=== PATIENT | female | born 1935 | race African-American/Black ===

== ENCOUNTER → 2021-04-18 14:14 | Outpatient (REF) | payer MEDICARE, BC, SELFPAY | LOC: ANHLAB 14:14 | PROVIDERS: PCP Family Medicine; Visit Provider Nurse Practitioner | DX: L98.9 Disorder of the skin and subcutaneous tissue, unspecified (principal) | CPT/HCPCS: 88304 ==

== ENCOUNTER 2021-08-18 09:03 | Outpatient (CLI) | payer MEDICARE, BC, SELFPAY ==
--- NOTE | 2021-08-18 13:53 | ECG_ITS ---
Measurements Intervals [place] Rate: 76 P: 40 SD: 186 QRS: -16 QRSD: 97 T: -11 QT: 368 QTc: 416 Interpretive Statements SINUS RHYTHM MINIMAL VOLTAGE CRITERIA FOR LVH, CONSIDER NORMAL VARIANT [MEETS CRITERIA IN ONE OF: R(aVL), S(V1), R(V5), R(V5/V6)+S(V1)] NONSPECIFIC T-WAVE ABNORMALITY POOR R-WAVE PROGRESSION ABNORMAL ECG NO PREVIOUS ECG AVAILABLE FOR COMPARISON Electronically Signed On 08-18-2021 17:03:42 CDT by Bert Vadles M.D.
[2021-08-18 14:42] LABS: Anion Gap 9 mmol/L (8-16); Blood Urea Nitrogen 26 mg/dL (7-17); Calcium 8.7 mg/dL (8.4-10.2); Carbon Dioxide 31 mmol/L (22-30); Chloride 101 mmol/L (98-107); Estimated Glomerular Filt Rate > 60; Glucose 130 mg/dL (65-110); Potassium 3.7 mmol/L (3.4-5.0); Sodium 141 mmol/L (137-145)
== END 2021-08-18 09:04 | disposition home or self-care (01) ==
PROVIDERS: Anesthesiology; PCP Family Medicine; Visit Provider Surgery Plastic and Reconstructive Surgery
DX: Z01.818 Encounter for other preprocedural examination (principal); I10 Essential (primary) hypertension; Z79.899 Other long term (current) drug therapy; R94.31 Abnormal electrocardiogram [ECG] [EKG]
CPT/HCPCS: 36415; 80048; 93005

== ENCOUNTER 2021-08-23 00:22 | Day surgery (SDC) | payer MEDICARE, BC, SELFPAY ==
[2021-08-12 13:17] VITALS: BMI 37.0
--- NOTE | 2021-08-12 13:29 | PC.NURSE ---
Report to the Outpatient Waiting Room, entrance under the green pavilion located off [facility], at time _0700_ on date _08/23/21_. OR Time: __0900__. - You and your visitor will be asked a series of questions to screen for COVID 19 for your protection. - A mask is required within the hospital. One visitor will be allowed to accompany the patient into the hospital. Patients visitor will be instructed to remain with patient at all times or leave the building. We will allow the visitor to come back to the postoperative area when patient is ready. Preoperative COVID Testing Requirements: NONE Patients may have clear liquids (water, carbonated beverages, clear teas, apple juice) until 3 hours prior to surgery (0600 AM) with a maximum of 20 ounces. - No food from midnight until time of surgery Take the following medications with a SIP of water the morning of surgery: _METOPROLOL, INHALER_ Medications to discontinue - _ASPIRIN PER DR. MCKEON'S INSTRUCTIONS__ Medications to discontinue - MULTIVITAMIN 3 DAYS PRIOR TO SURGERY PER ANESTHESIA, Date to take last dose_08/19/21__ Please no make-up, nail yoruba, hairspray, perfume, deodorant, or body powder the day of surgery. No jewelry (including any body piercings) or valuables the day of surgery, leave them at home. Please take a shower or bath the night before, or the morning of, surgery with an antibacterial soap. Wear comfortable, loose fitting clothing. - Jewelry must be removed prior to entering the operating room. Rings and piercings that are not removed may be cut off. - The hospital will not accept responsibility for valuables. - Please leave all valuables, including medications, at home the day of surgery. If you are going home after surgery, a licensed haul truck driver must drive you home. - NO public transportation without another adult. - We recommend that an adult stay with you for 24 hours following discharge. - We also recommend that you do not drive, make important decision, drink alcoholic beverages, or take any drugs that were not prescribed by your health care provider for at least 24 hours after your discharge time. Follow any additional instructions given to you from your surgeon. Telephone instructions given to ____PT and asked if any additional questions and then verbalized understanding. Patient advised to call surgeon office or pre surgery nurse liaison [phone] if any additional questions.
[2021-08-23 07:15] VITALS: BP 147/62; PULSE 75; RESP 16; TEMP 36.9; O2SAT 100
[2021-08-23] MEDS: LACTATED RINGERS 1,000 ML 30 ML IV CONT (07:35)
--- NOTE | 2021-08-23 08:11 | WPDANESEPPF ---
Anes - Initial Pre Proc Eval Procedure: Operation Date: 08/23/21 09:00 Proposed Procedures p Excision Subcutaneous Mass Right Lower Eyelid - Dash Gong MD Date/Time: 08/23/21 08:11 Surgeon: Dash Gong MD Pre Op Diagnosis: sub q mass right lower eyelid Patient Data Age: 86 Gender: F Height: 1.57 m Weight: 91.55 kg Last Vital Signs Temp 36.9 C 08/23/21 07:15 Pulse 75 08/23/21 07:15 Resp 16 08/23/21 07:15 BP 147/62 H 08/23/21 07:15 Pulse Ox 100 08/23/21 07:15 Allergies Allergy/AdvReac Type Severity Reaction Status Date / Time No Known Allergies Allergy Verified 08/23/21 07:58 Home Medications Medication Instructions Recorded Confirmed Type albuterol sulfate 90 mcg/actuation 2 puff INHALATION Q4H PRN g 02/08/21 08/23/21 History aerosol inhaler allopurinol 100 mg tablet 100 mg PO QAM tablet 02/08/21 08/12/21 History atorvastatin 20 mg tablet 20 mg PO HS 02/08/21 08/12/21 History celecoxib 100 mg capsule 100 mg PO HS cap 02/08/21 08/12/21 History desoximetasone 0.25 % topical cream 1 applic TOPICAL BID PRN 02/08/21 08/12/21 History etanercept [Enbrel] 50 mg SUBCUT WEEKLY 02/08/21 08/12/21 History fluticasone 250 mcg-salmeterol 50 1 inh INHALATION BID 02/08/21 08/12/21 History mcg/dose blistr powdr for inhalation hydrochlorothiazide 25 mg tablet 25 mg PO QAM 02/08/21 08/12/21 History metoprolol tartrate 50 mg PO QAM 02/08/21 08/23/21 History multivitamin 1 tablet PO QAM 02/08/21 08/23/21 History tramadol 50 mg tablet 50 mg PO Q6H PRN 02/08/21 08/12/21 History Lactobacillus acidoph-L. bifid 1 cap PO QAM 08/12/21 08/23/21 History aspirin 81 mg PO QAM 08/12/21 08/12/21 History ciprofloxacin HCl 250 mg PO Q12H 08/12/21 08/12/21 History Patient hx anesthesia problems: none Family hx anesthesia problems: none Results Review: All pre-operative results and documents have been reviewed as part of the pre-operative evaluation. [facility] Past Medical History Medical History (Updated 08/22/21 @ 14:52 by Kareem Barraza DO) Asthma GERD (gastroesophageal reflux disease) History of breast cancer Hyperlipidemia Hypertension ERNST (obstructive sleep apnea) CPAP Osteoarthritis Pulmonary embolism Surgical History Surgical History (Updated 08/22/21 @ 14:52 by Kareem Barraza DO) History of hysterectomy History of mastectomy Social History Social History Smoking status: Never smoker Second hand tobacco smoke exposure: No Alcohol intake: never Substance use: never Substance use type: does not use Living arrangements: with family Additional living arrangements comments: [facility] WITH PT Spiritual care concerns: No Anes - Eval Final PreProcedure Day of Procedure 08/23/21 08:11 Patient weight: obese Heart: regular rate and rhythm Lungs: clear to auscultation and normal air movement Airway: Mallampati scale class II Neurological: alert and oriented Last oral intake: >/= 8 hours ASA classification: III Emergent: no Anesthetic plan: proceed Anesthesia type and monitoring: general LMA and standard monitoring Results Review: All pre-operative results and documents have been reviewed as part of the pre-operative evaluation. Informed Consent: The patient's anesthetic plan and its attendant risks and benefits were discussed with the patient/family/POA. Questions were solicited and answers provided to the satisfaction of the patient/family/POA.
--- NOTE | 2021-08-23 08:20 | WPDHPUPDATE1 ---
History and Physical Update Update Date/Time: 08/23/21 08:20 History and Physical has been reviewed, including an updated exam of the patient. There are NO changes in the patient's condition. Risks, benefits, and alternatives have been discussed and questions answered. Patient agrees to proceed with procedure.
--- NOTE | 2021-08-23 08:24 | W.PM.PROC2 ---
Procedure Note - Detailed Date of Procedure 08/23/21 Pre-op Diagnosis sub q mass right lower eyelid Post-op Diagnosis Same Procedure Performed Excision right lower eyelid cyst 0.5 cm Surgeon Dash Gong MD Anesthesia MAC Description of Procedure Preoperatively the risks, benefits, alternatives were discussed with her and her family in great detail. I want them to be very realistic about the risks involved as well as expectations. I was very up front honest the risk of recurrence. I had extensive conversation regarding risk of visual changes, dry eyes, epiphora, risk of injury to the lacrimal duct and other adjacent structures. This was a lengthy open-ended conversation making sure they were well informed. All questions were answered to their satisfaction today. Consent obtained. Patient was marked in the preoperative holding area with their verification. She was taken to the operating room placed supine on the operating room table. Anesthesia provided by anesthesiology and prepped and draped in a standard sterile fashion. Surgical time-out was taken. 1% lidocaine with epinephrine was used anesthetize locally. A 15 blade used to excise the cyst. This was down to the tarsal plate. Closed with 6 0 nylon. No evidence of lacrimal duct injury. Completely excised. She has taken to the PACU without difficulty. All instrument sponge counts were correct at the end of the case. Estimated Blood Loss 5 Drains No Packing No Pathology Yes (right lower lid cyst) Complications No immediate complications Condition Stable Disposition PACU
[2021-08-23] MEDS: ceFAZolin 2 GM/D5W 50 ML 2 GM/50 ML BAG IVPB (08:43)
[2021-08-23] MEDS: LIDO 1%/EPINEPHRINE 1:100,000 50 ML VIAL 20 ML INFILTRATE (09:10)
[2021-08-23 09:18] VITALS: BP 124/61; PULSE 77; RESP 12; O2SAT 98
[2021-08-23 09:45] VITALS: BP 138/66; PULSE 70
[2021-08-23 10:00] VITALS: BP 143/71; PULSE 67
== END 2021-08-23 10:17 | disposition home or self-care (01) ==
PROVIDERS: PCP Family Medicine; Visit Provider Surgery Plastic and Reconstructive Surgery
PROC: (CPT 11441; principal; 2021-08-23 09:00)
DX: D23.112 Other benign neoplasm of skin of right lower eyelid, including canthus (principal); I10 Essential (primary) hypertension; E78.5 Hyperlipidemia, unspecified; J45.909 Unspecified asthma, uncomplicated; K21.9 Gastro-esophageal reflux disease without esophagitis; G47.33 Obstructive sleep apnea (adult) (pediatric); Z85.3 Personal history of malignant neoplasm of breast; Z86.711 Personal history of pulmonary embolism; Z79.51 Long term (current) use of inhaled steroids; Z79.82 Long term (current) use of aspirin; E66.9 Obesity, unspecified; Z68.36 Body mass index [BMI] 36.0-36.9, adult
CPT/HCPCS: 11441; 88305; A9270; J0690; J2704; J7120